=== PATIENT | male | born 1965 | race Caucasian/White ===

== ENCOUNTER 2018-02-20 08:22 | Emergency (ER) | payer OTHER ==
[~2018-02-20] VITALS: Ht 157.4 cm; Wt 54.4 kg
[~2018-02-20 08:22] MED LIST: DAYPRO600 M1 PO; PHENERGAN W/DM120 ML PO; PREDNICOT10 MG PO; ROBAXIN750 MG PO; VICODIN 500 MG-1 TAB PO; ZITHROMAX Z PA250 MG PO
[2018-02-20] MEDS ORDERED: PREDNISONE50 MG PO (08:53)
== END 2018-02-20 10:01 | disposition home or self-care (01) ==
LOC: ED 08:22
DX: L25.9 Unspecified contact dermatitis, unspecified cause (principal); F17.200 Nicotine dependence, unspecified, uncomplicated

== ENCOUNTER 2021-12-26 19:32 | Inpatient (IN) | payer OTHER ==
[~2021-12-26] VITALS: Ht 154.9 cm; Wt 59.9 kg
[~2021-12-26 19:32] MED LIST changes: +PREDNISONE50 MG PO
[2021-12-26 20:16] VITALS: BP 194/119
[2021-12-26 20:18] VITALS: BP 197/119
[2021-12-26 21:33] LABS: BASO % 0.4 % (0.0-1.0); EOS # 0.2 10*3/uL (0.0-0.4); EOS % 2.3 % (1.0-4.0); LYMPH # 1.7 10*3/uL (1.3-4.4); MEAN CELL VOLUME 84.6 fl (80.0-94.0); MEAN CORPUSCULAR HGB 27.5 pg (27.0-31.0); MEAN CORPUSCULAR HGB CONC 32.6 g/dl (33.0-37.0); MONO # 0.6 10*3/uL (0.1-1.0); MONO % 6.2 % (3.0-9.0); NEUT # 6.6 10*3/uL (2.3-7.9); NEUT % 71.6 % (47.0-73.0); PLATELET COUNT AUTOMATED 237 10*3/uL (130-400); RED BLOOD COUNT 4.61 10*6/uL (4.50-5.90); RED CELL DISTRI WIDTH 16.1 % (0-14.5); WHITE BLOOD COUNT 9.2 10*3/uL (4.8-10.8)
[2021-12-26 21:52] LABS: CREATININE 1.53 mg/dL (0.70-1.30); POTASSIUM 4.3 mmol/L (3.5-5.1); TOTAL PROTEIN 7.5 gm/dL (6.4-8.2)
[2021-12-26 22:10] VITALS: BP 184/112
[2021-12-26 23:50] VITALS: BP 164/102
[2021-12-27 05:27] LABS: BILIRUBIN Negative (Negative); BLOOD Negative (Negative); CLARITY Clear (Clear); COLOR Yellow (Yellow); GLUCOSE Negative (Negative); KETONE Negative (Negative); LEUKO ESTERASE Negative (Negative); NITRITE Negative (Negative); PH 5.5 (4.5-8.0); SPECIFIC GRAVITY >= 1.030 (1.001-1.030); UROBILINOGEN 0.2 E.U./dl (0.0-1.0)
[2021-12-27 05:33] LABS: RBC 0-2 rbc/hpf (0-2); WBC 0-2 wbc/hpf (0-5)
[2021-12-27 07:14] VITALS: BP 139/81
[2021-12-27 07:33] VITALS: BP 133/75
[2021-12-27 08:50] VITALS: BP 180/88
[2021-12-27 12:00] VITALS: BP 173/98
[2021-12-27] MEDS ORDERED: ATORVASTATIN CA80 M1 PO (16:41)
[2021-12-27] MEDS ORDERED: GOOD SENSE ASP325 MG PO (16:41)
[2021-12-27] MEDS ORDERED: PLAVIX75 M1 PO (16:41)
[2021-12-27] MEDS ORDERED: NORVASC5 MG PO (16:41)
[2021-12-27] MEDS ORDERED: ZESTRIL10 MG PO (16:41)
== END 2021-12-27 17:45 | disposition home or self-care (01) | DRG 69 ==
LOC: ED 19:32 → EDHOLD 22:41 → 4E 22:41
PROVIDERS: Emergency Medicine; ADMIT Internal Medicine; ATTEND Internal Medicine
DX: G45.9 Transient cerebral ischemic attack, unspecified (principal); N17.0 Acute kidney failure with tubular necrosis; I16.1 Hypertensive emergency; G47.00 Insomnia, unspecified; D64.9 Anemia, unspecified; E83.41 Hypermagnesemia; Z83.6 Family history of other diseases of the respiratory system

== ENCOUNTER → 2022-01-02 | Outpatient (CLI) | payer OTHER ==
[~2022-01-02] MED LIST changes: +ATORVASTATIN CA80 M1 PO; +GOOD SENSE ASP325 MG PO; +NORVASC5 MG PO; +PLAVIX75 M1 PO; +ZESTRIL10 MG PO
== END | disposition home or self-care (01) ==
LOC: RESCLI 00:56
PROVIDERS: ATTEND Internal Medicine
DX: I10 Essential (primary) hypertension (principal); N17.9 Acute kidney failure, unspecified; E78.5 Hyperlipidemia, unspecified; I65.23 Occlusion and stenosis of bilateral carotid arteries; G45.9 Transient cerebral ischemic attack, unspecified; I67.9 Cerebrovascular disease, unspecified; I63.9 Cerebral infarction, unspecified; I63.81 Other cerebral infarction due to occlusion or stenosis of small artery; Z88.9 Allergy status to unspecified drugs, medicaments and biological substances; Z98.890 Other specified postprocedural states; Z79.899 Other long term (current) drug therapy; Z79.82 Long term (current) use of aspirin

== ENCOUNTER → 2022-01-23 | Outpatient (CLI) | payer OTHER | END | disposition home or self-care (01) | LOC: RESCLI 00:20 | PROVIDERS: ATTEND Internal Medicine | DX: I10 Essential (primary) hypertension (principal); E78.5 Hyperlipidemia, unspecified; Z72.0 Tobacco use; G45.9 Transient cerebral ischemic attack, unspecified; I67.9 Cerebrovascular disease, unspecified; I65.23 Occlusion and stenosis of bilateral carotid arteries; I63.81 Other cerebral infarction due to occlusion or stenosis of small artery; I63.9 Cerebral infarction, unspecified; Z88.9 Allergy status to unspecified drugs, medicaments and biological substances; Z98.890 Other specified postprocedural states; Z79.899 Other long term (current) drug therapy; Z79.82 Long term (current) use of aspirin ==

== ENCOUNTER 2023-08-15 01:15 | Emergency (ER) | payer BC ==
[2023-08-15] MEDS ORDERED: cloNIDine Hydrochloride 0.1 MG TAB PO ONE (01:20)
[2023-08-15] MEDS ORDERED: hydrALAZINE hydrochloride 20 MG/ML VIAL IV ONE ×4 (01:30→02:35)
[2023-08-15] MEDS ORDERED: Ondansetron Hydrochloride 4 MG/2 ML VIAL IV ONE (01:30)
== END 2023-08-15 03:13 | disposition short-term general hospital (02) ==
LOC: ED 01:15
DX: I61.9 Nontraumatic intracerebral hemorrhage, unspecified (principal); I16.0 Hypertensive urgency; R11.2 Nausea with vomiting, unspecified; Z98.890 Other specified postprocedural states

== ENCOUNTER → 2023-12-20 | Outpatient (CLI) | payer BC | END | disposition home or self-care (01) | LOC: US 09:30 | PROVIDERS: ATTEND Family Medicine | DX: N26.1 Atrophy of kidney (terminal) (principal); N17.9 Acute kidney failure, unspecified; I71.40 Abdominal aortic aneurysm, without rupture, unspecified ==